=== PATIENT | male | born 1975 | race Caucasian/White ===

== ENCOUNTER 2018-06-23 16:41 | Emergency (ER) | payer OTHER ==
[2018-06-23 16:45] VITALS: BP 143/75
[2018-06-23 16:57] LABS: ABSOLUTE BASOPHILS # (AUTO) 0.1 10^3/uL (0.0-0.2); ABSOLUTE EOSINOPHILS # (AUTO) 0.2 10^3/uL (0.0-0.6); ABSOLUTE LYMPHOCYTES (AUTO) 2.6 10^3/uL (0.5-4.7); ABSOLUTE NEUT (AUTO) 11.1 10^3/uL (1.7-8.2); BASOPHILS % (AUTO) 0.5 % (0-2); EOSINOPHILS % (AUTO) 1.4 % (0-6); HEMATOCRIT 44.5 % (37.9-51.0); HEMOGLOBIN 15.4 g/dL (13.5-17.0); LYMPHOCYTES % (AUTO) 17.1 % (13-45); MEAN CORPUSCULAR HEMOGLOBIN 32.3 pg (27.0-33.4); MEAN CORPUSCULAR HGB CONC 34.6 g/dL (32.0-36.0); MEAN CORPUSCULAR VOLUME 94 fl (80-97); MONOCYTES % (AUTO) 6.5 % (3-13); PLATELET COUNT 240 10^3/uL (150-450); RED BLOOD COUNT 4.76 10^6/uL (4.35-5.55); RED CELL DISTRIBUTION WIDTH 14.6 % (11.5-14.0); SEGMENTED NEUTROPHILS % (AUTO) 74.5 % (42-78); TOTAL CELLS COUNTED % (AUTO) 100 %; WHITE BLOOD COUNT 14.9 10^3/uL (4.0-10.5)
[2018-06-23] MEDS ORDERED: ONDANSETRON HCL INJ/PF 4 MG/2 ML SDV IV ONE (16:57)
[2018-06-23] MEDS ORDERED: HYDROMORPHONE HCL INJ/PF 2 MG/ML AMPULE IV ONE (16:57)
--- NOTE | 2018-06-23 17:02 | ER Document Report ---
ED General - General Chief Complaint: Flank Pain Stated Complaint: DIFFICULTY BREATHING/FLANK PAIN Time Seen by Provider: 06/23/18 16:48 Mode of Arrival: Medic Information source: Patient Notes: 42-year-old male presents emergency department with complaints of left flank pain, nausea, vomiting. Patient says his symptoms feel similar to kidney stones. Patient states that he was diagnosed with kidney stones 2 weeks ago. He had a CT abd/pel done that showed this. Patient states that he has passed 2 of the [address] the [address] abd/pel. He says he could have passed the 3rd stone as he doesn't strain all the time. He states that he was given a prescription for Flomax and an antibiotic. Patient states that he took both medications but finished the prescriptions. Patient denies any fever, chills, diarrhea, constipation. Patient states that he is having dysuria, hematuria, increased urgency, increased frequency. He denies any testicular pain, penile discharge. 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 TRAVEL OUTSIDE OF THE [place] IN LAST 30 DAYS: No - HPI Onset: Just prior to arrival Onset/Duration: Gradual Quality of pain: Achy Severity: Moderate Associated symptoms: Nausea, Vomiting Exacerbated by: Denies Relieved by: Denies Similar symptoms previously: Yes Recently seen / treated by doctor: Yes Past Medical History - General Information source: Patient - Social History Smoking Status: Current Some Day Smoker Family History: Reviewed & Not Pertinent Patient has suicidal ideation: No Patient has homicidal ideation: No Renal/ Medical History: Denies: Hx Peritoneal Dialysis Review of Systems - Review of Systems Constitutional: No symptoms reported EENT: No symptoms reported Cardiovascular: No symptoms reported Respiratory: No symptoms reported Gastrointestinal: Abdominal pain, Nausea, Vomiting Genitourinary: Dysuria, Frequency, Flank pain, Hematuria, Urgency Male Genitourinary: No symptoms reported Musculoskeletal: No symptoms reported Skin: No symptoms reported Hematologic/Lymphatic: No symptoms reported Neurological/Psychological: No symptoms reported -: Yes All other systems reviewed and negative Physical Exam - Vital signs Vitals: Temp Pulse Resp BP Pulse Ox 98.1 F 82 18 143/75 H 97 06/23/18 16:44 06/23/18 16:44 06/23/18 16:44 06/23/18 16:44 06/23/18 16:44 - Notes Notes: PHYSICAL EXAMINATION: GENERAL: Well-appearing, well-nourished and in no acute distress. HEAD: Atraumatic, normocephalic. EYES: Pupils equal round and reactive to light, extraocular movements intact, sclera anicteric, conjunctiva are normal. ENT: Nares patent, oropharynx clear without exudates. Moist mucous membranes. NECK: Normal range of motion, supple without lymphadenopathy LUNGS: Breath sounds clear to auscultation bilaterally and equal. No wheezes rales or rhonchi. HEART: Regular rate and rhythm without murmurs ABDOMEN: Morbidly obese. Tenderness to palpation in the left flank and left lower quadrant. Patient does have CVA tenderness. No rebound or guarding. Normal active bowel sounds. Musculoskeletal: Normal range of motion, no pitting or edema. No cyanosis. NEUROLOGICAL: Cranial nerves grossly intact. Normal speech, normal gait. Normal sensory, motor exams PSYCH: Normal mood, normal affect. SKIN: Warm, Dry, normal turgor, no rashes or lesions noted. Course - Re-evaluation Re-evalutation: 06/23/18 18:53 Patient's white blood cell count is elevated at 14.9. Urine shows signs of infection. I will give the patient 1G of Rocephin in the emergency department. Blood and urine cultures obtained. Patient states that he was recently diagnosed with kidney stones. He states that he had a CT done 2 weeks ago. Patient states that he was told that all of the stones were small enough to pass. He has passed 2 out of the [address] abd/pel to re- evaluate for stones. He says that his symptoms are the same as they were 2 weeks ago. I will discharge the patient home with a prescription for Flomax, Acampo, Zofran, keflex. Patient told to take the medication as directed, to follow up with his urologist/PCP this week, and to return for worsening symptoms. 06/23/18 19:02 06/23/18 23:08 - Vital Signs Vital signs: Temp Pulse Resp BP Pulse Ox 98.1 F 82 18 143/75 H 97 06/23/18 16:44 06/23/18 16:44 06/23/18 16:44 06/23/18 16:44 06/23/18 16:44 - Laboratory Result Diagrams: 06/23/18 16:30 11/13/18 16:30 Laboratory results interpreted by me: 06/23/18 06/23/18 06/23/18 16:30 16:30 17:16 WBC 14.9 H RDW 14.6 H Absolute Neutrophils 11.1 H Total Bilirubin 2.0 H Direct Bilirubin 0.5 H Urine Protein >=500 H Urine Blood SMALL H Urine Bilirubin SMALL H Urine Urobilinogen 4.0 H Discharge - Discharge Clinical Impression: Urinary tract infection Qualifiers: Urinary tract infection type: acute cystitis Hematuria presence: with hematuria Qualified Code(s): N30.01 - Acute cystitis with hematuria Condition: Good Disposition: HOME, SELF-CARE Instructions: Cephalexin ([facility]), Urinary Tract Infection ([facility]) Prescriptions: Cephalexin Monohydrate [Keflex 500 mg Capsule] 500 mg PO BID 5 Days #10 capsule Hydrocodone/Acetaminophen [Acampo 5-325 Tablet] 1 each PO Q4 #10 tablet Ondansetron [Zofran Odt 4 mg Tablet] 1 tab PO Q4H PRN #15 tab.rapdis PRN Reason: For Nausea/Vomiting Tamsulosin HCl [Flomax] 0.4 mg PO DAILY #10 cap.er.24h Referrals: FERN CHAN MD [ACTIVE STAFF] - Follow up as needed
[2018-06-23 17:21] LABS: ALANINE AMINOTRANSFERASE 35 U/L (21-72); ALBUMIN 3.9 g/dL (3.5-5.0); ALKALINE PHOSPHATASE 66 U/L (38-126); ANION GAP 13 (5-19); ASPARTATE AMINO TRANSFERASE 32 U/L (17-59); BILIRUBIN,DIRECT 0.5 mg/dL (0.0-0.4); BLOOD UREA NITROGEN 12 mg/dL (7-20); CALCIUM 9.6 mg/dL (8.4-10.2); CARBON DIOXIDE 26 mmol/L (22-30); CHLORIDE 104 mmol/L (98-107); GLUCOSE 93 mg/dL (75-110); POTASSIUM 3.7 mmol/L (3.6-5.0); SODIUM 142.5 mmol/L (137-145); TOTAL PROTEIN 6.9 g/dL (6.3-8.2)
[2018-06-23 17:36] LABS: APPEARANCE,URINE SLIGHTLY-CLOUDY; BILIRUBIN,URINE SMALL (NEGATIVE); COLOR,URINE AMBER; GLUCOSE, URINE NEGATIVE (NEGATIVE); KETONES,URINE NEGATIVE (NEGATIVE); LEUKOCYTE ESTERASE,URINE NEGATIVE (NEGATIVE); NITRITE,URINE NEGATIVE (NEGATIVE); PROTEIN,URINE >=500 mg/dL (NEGATIVE); URINE SPECIFIC GRAVITY 1.027
[2018-06-23] MEDS ORDERED: CEFTRIAXONE INJ 1000 MG VIAL IV ONE (18:51)
== END 2018-06-23 19:16 | disposition home or self-care (01) ==
LOC: ER 16:41
DX: N30.01 Acute cystitis with hematuria (principal); R11.2 Nausea with vomiting, unspecified; Z87.442 Personal history of urinary calculi; F17.200 Nicotine dependence, unspecified, uncomplicated
CPT/HCPCS: 99284; 96374; 96375; 36415; 87086; 85025; 87088; 80053; 81001; 87186; J1170; J0696; J2405